=== PATIENT | female | born 1990 | race Caucasian/White ===

== ENCOUNTER 2023-07-28 19:13 | Emergency (ER) | payer BC, SELFPAY ==
--- NOTE | 2023-07-28 20:33 | PC.NURSE ---
Rounded on pt, no needs at this time.
[2023-07-28 20:56] VITALS: BP 132/75; PULSE 80; RESP 15; TEMP 36.8; O2SAT 98; BMI 32.6
--- NOTE | 2023-07-28 21:08 | PC.NURSE ---
Rounded on patient and mother; patient resting soundly at this time. Recheck Temp was 99 rectally. Call light within reach
[2023-07-28 21:15] LABS: Microscopic, Urine URINE MICROSCOPIC (MICROSCOPIC)
[2023-07-28 21:18] LABS: Appearance,Urine CLEAR (Clear); Bilirubin,Urine Negative (Negative); Blood, Urine 2+ (Negative); Color,Urine YELLOW (Yellow); Glucose,Urine (UA) Negative (Negative); Ketones,Urine Negative (Negative); Leukocyte Esterase,Urine Negative (Negative); Nitrate,Urine Negative (Negative); Protein,Urine Negative (Negative); Urobilinogen,Urine 0.2 EU/dl (0.2)
[2023-07-28 21:19] LABS: Urine Pregnancy, HCG Qual. Negative (Negative)
[2023-07-28 21:41] LABS: Basophils % 0.4 % (0.1-2.0); Eosinophils # 0.2 K/mm3 (0.0-0.4); Eosinophils % 2.4 % (0.1-12.0); Hematocrit 40.6 % (37.0-47.0); Lymphocytes # 1.7 K/mm3 (0.7-4.5); Lymphocytes % 17.3 % (10-50); Mean Corpuscular HGB Conc 32.1 g/dL (31.8-35.4); Mean Corpuscular Hemoglobin 28.8 pg (27.0-31.2); Mean Corpuscular Volume 89.7 fl (81-99); Monocytes # 0.4 K/mm3 (0.1-1.0); Neutrophils # 7.4 K/mm3 (1.8-7.8); Platelet Count 195 K/mm3 (142-424); Red Blood Count 4.53 M/mm3 (4.20-5.40); Red Cell Distribution Width 12.4 % (11.5-17.5); White Blood Count 9.7 K/mm3 (4.8-10.8)
[2023-07-28 21:41] LABS: RBC,Urine Occasional #/hpf (0-3); Squamous Epithelial Cell,Urine Occasional #/hpf (0-5)
[2023-07-28 21:48] LABS: Chloride 108 mmol/L (98-107); Potassium 3.5 mmoL/L (3.5-5.1); Sodium 140 mmol/L (136-145)
[2023-07-28 21:50] LABS: Alanine Aminotransferase 23 U/L (12-78); Aspartate Amino Transferase 32 U/L (14-36); Bilirubin,Total 0.6 mg/dl (0.2-1.3); Blood Urea Nitrogen 11 mg/dl (7-17); Creatinine Clearance Estimated 179 mL/min (50-200); Estimated Glomerular Filt Rate 98 ml/min (>60); GFR (African American) 118 ML/MIN (>60)
[2023-07-28 21:51] LABS: Albumin Level 4.1 g/dl (3.5-5.0); Albumin/Globulin Ratio 1.3 (1.1-1.8); Alkaline Phosphatase 37 U/L (38-126); Anion Gap 11.5 mEq/L (5-15); Calcium 8.6 mg/dl (8.4-10.2); Carbon Dioxide 24 mmol/L (22.0-30.0); Globulin 3.2 g/dL (1.3-3.2); Glucose 89 mg/dl (74-100); Lipase 94 U/L (23-300); Total Protein,Serum 7.3 g/dl (6.3-8.2)
--- NOTE | 2023-07-28 22:12 | CT_ITS ---
PROCEDURE INFORMATION: Exam: CT Abdomen And Pelvis With Contrast Exam date and time: 07/28/2023 10:22 PM Age: 33 years old Clinical indication: Vomiting; Abdominal pain; Additional info: Ruq pain, vomit TECHNIQUE: Imaging protocol: Computed tomography of the abdomen and pelvis with contrast. Radiation optimization: All CT scans at this facility use at least one of these dose optimization techniques: automated exposure control; mA and/or kV adjustment per patient size (includes targeted exams where dose is matched to clinical indication); or iterative reconstruction. Contrast material: ISOVUE; Contrast volume: 75 ml; Contrast route: IV; REPORTING DATA: Count of CT and Cardiac NM exams in prior 12 months: This patient has received 0 known CTs and 0 known cardiac nuclear medicine studies in the 12 months prior to the current study. COMPARISON: No relevant prior studies available. FINDINGS: Lungs: 16 mm subpleural bulla/bleb at the right lung base. Liver: Normal. No mass. Gallbladder and bile ducts: Normal. No calcified stones. No ductal dilation. Pancreas: Normal. No ductal dilation. Spleen: Normal. No splenomegaly. Adrenal glands: Normal. No mass. Kidneys and ureters: Normal. No hydronephrosis. Stomach and bowel: Unremarkable. No obstruction. No mucosal thickening. Appendix: No evidence of appendicitis. Intraperitoneal space: Unremarkable. No free air. No significant fluid collection. Vasculature: Unremarkable. No abdominal aortic aneurysm. Lymph nodes: Unremarkable. No enlarged lymph nodes. Urinary bladder: Unremarkable as visualized. Reproductive: Unremarkable as visualized. Bones/joints: There is congenital narrowing of the bony lumbar canal. There are mild posterior disc osteophyte complexes from L2-L3 through L4-L5 causing at least mild central canal stenosis at these levels. Soft tissues: Unremarkable. IMPRESSION: 1. There is no acute process evident within the abdomen or pelvis. 2. 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
--- NOTE | 2023-07-28 22:13 | HMH.EDGENADL ---
Discharge Plan Disposition Patient Disposition: Home, Self-Care Prescriptions Prescriptions: New ondansetron 4 mg tablet,disintegrating 4 mg PO Q8H PRN (Reason: nausea and vomiting) 4 Days Qty: 12 0RF Referrals Follow up/Referrals: Radha Fabian [Primary Care Provider] - See instructions Kamran Baig DO [Staff Physician] - See instructions Activity Restrictions/Add. Instructions Additional Instructions/Restrictions: At this time is felt you are safe to be discharged home. If new or worsening symptoms please do not hesitate to return the emergency department. Please take your medication as prescribed. It is possible that you have a virus that will spontaneously resolve over time. If symptoms persist it is possible that you may have some gallbladder dysfunction. Please call Dr. Baig to establish care as soon as you are able. Clinical Impressions Clinical Impression: Abdominal pain, Vomiting Instructions Patient Instructions: DI for Acute Abdominal Pain Discharge ED Provider: Jorge Modi General Adult HPI General Chief complaint: Abdominal Pain Stated complaint: abd pain V/D Time Seen by Provider: 07/28/23 21:30 Mode of Arrival: Family Vehicle Source of Information: Patient Limitations: No Limitations Description of Symptoms (Recalled from ER Triage Doc. by RN): RUQ abd pain, n/v/d since Thursday. Decr PO intake. Afebrile. History of Present Illness HPI narrative: Patient is a 33-year-old female no pertinent past medical history presents emergency department for evaluation of right upper quadrant abdominal pain. Onset was acute, occurring since Thursday, nonbloody vomiting and diarrhea, moderate to severe right upper quadrant abdominal pain. No other acute complaints at this time. Currently on her period. Related Data Previous Rx's Medication Instructions Recorded ondansetron 4 mg disintegrating 4 mg PO Q8H PRN nausea and 07/29/23 tablet vomiting 4 days #12 tabs Allergies Allergy/AdvReac Type Severity Reaction Status Date / Time Penicillins Allergy Intermediate Verified 07/28/23 20:01 codeine Allergy Mild Verified 07/28/23 20:01 amoxicillin Allergy Unknown Verified 07/28/23 20:01 allergy reaction [facility] Disclaimer: The information contained in this section may have been updated after the patient was seen, as this information can be updated by other users. Social History Smoking Status: Unknown if ever smoked alcohol intake: never current occupational status: other Travel in the last 8 weeks: None ROS Obtained: Yes Systems reviewed as appropriate & no additional complaints except as documented Physical Exam General General appearance: alert and in no apparent distress Head Head exam: atraumatic and normocephalic Eye Eye exam: Present PERRL and EOMI ENT ENT exam: Present mucous membranes moist Neck Neck exam: Present normal inspection Chest Chest inspection: Present normal inspection and symmetric chest wall rise Respiratory Respiratory exam: Present normal lung sounds bilaterally; Absent respiratory distress Cardiovascular Cardiovascular exam: Present regular rate and normal rhythm Abdominal Exam Abdominal exam: Present soft and tenderness (Right upper quadrant); Absent guarding or rebound Extremities Exam Extremities exam: Present normal inspection Neurological Exam Neurological exam: Present alert Psychiatric Psychiatric exam: Present normal affect Skin Skin exam: Present warm and dry Medical Decision Making Ladarius Inquiry Pt receiving controlled substance: No Vital Signs: 07/28/23 20:56 07/28/23 21:08 07/28/23 23:04 Temperature 98.2 F 99 F Temperature Source Oral Rectal Pulse Rate 76 Pulse Rate [Right Brachial] 80 Respiratory Rate 15 16 Blood Pressure 122/82 Blood Pressure [Right Arm] 132/75 Blood Pressure Mean 92 Blood Pressure Mean [Right Arm] 94 Blood Pressure Source [Right Arm] Automatic Cuff Blood Pres
--- NOTE | 2023-07-28 22:53 | PC.NURSE ---
Rounded on patient and family; warm blanket and pillow provided to patient
[2023-07-28 22:57] LABS: Coronavirus 19, PCR Not Detected (NotDetected); Influenza A, PCR Not Detected (NotDetected); Influenza B, PCR Not Detected (NotDetected)
[2023-07-28 23:04] VITALS: BP 122/82; PULSE 76; RESP 16; O2SAT 98
--- NOTE | 2023-07-28 23:05 | PC.NURSE ---
Rounded on patient; offered patient's sister crackers and a drink nothing else needed at this time. Call light within reach
[2023-07-28 23:30] VITALS: BP 119/71; PULSE 70; RESP 18; O2SAT 98
[2023-07-29] VITALS: BP 129/90; PULSE 74; RESP 16; O2SAT 98
[2023-07-29 00:24] VITALS: BP 126/84; PULSE 70; RESP 18; TEMP 36.8; O2SAT 99
== END 2023-07-29 00:25 | disposition home or self-care (01) ==
PROVIDERS: Emergency Provider Emergency Medicine; PCP Family Medicine
DX: R10.11 Right upper quadrant pain (principal); R11.2 Nausea with vomiting, unspecified
CPT/HCPCS: 36415; 74177; 80053; 81001; 81025; 83690; 85025; 87636; 96361; 96374; 96375; 99285; J0131; J2405; Q9967

== ENCOUNTER → 2023-08-12 08:21 | Outpatient (CLI) | payer OTHER, BC, SELFPAY ==
--- NOTE | 2023-08-12 08:25 | US_ITS ---
FINAL REPORT CLINICAL HISTORY: Bilary Abd Pain COMPARISON: None FINDINGS: Sonographic images of the right upper quadrant were obtained. The pancreas is obscured by overlying bowel gas. There is generalized increased echogenicity in the liver compatible with fatty infiltration of the liver. There is a small 7 x 7 mm hypoechoic focus in the liver, likely a hepatic cyst. The gallbladder appears normal without evidence of gallstones.There is no evidence of biliary ductal dilatation.The common duct measures 3 mm. Limited images of the right kidney are unremarkable. IMPRESSION: Fatty infiltration of the liver. No evidence of biliary ductal dilatation or gallstones. Reviewed, Interpreted and Dictated by Andrea Del Rosario III, MD Transcribed by Florencia Torrez Authenticated and [facility]
[2023-08-12 09:48] LABS: Chol/HDL Ratio 3.3 (1-3.5); Cholesterol 169 mg/dl (140-200); HDL Cholesterol 52 mg/dl (40-60); Triglycerides 85 mg/dl (30-150); VLDL Cholesterol 17 mg/dL (0-40)
[2023-08-12 09:59] LABS: Direct LDL Cholesterol 99.26 mg/dL (100-129)
== END ==
PROVIDERS: PCP Internal Medicine; Visit Provider Internal Medicine
DX: K83.9 Disease of biliary tract, unspecified (principal); R10.9 Unspecified abdominal pain; E55.9 Vitamin D deficiency, unspecified; Z13.21 Encounter for screening for nutritional disorder; Z13.220 Encounter for screening for lipoid disorders; Z68.33 Body mass index [BMI] 33.0-33.9, adult
CPT/HCPCS: 36415; 76705; 80061; 82306

== ENCOUNTER → 2023-09-07 10:11 | Outpatient (CLI) | payer OTHER, SELFPAY ==
--- NOTE | 2023-09-07 10:12 | NM_ITS ---
FINAL REPORT CLINICAL HISTORY: Biliary colic in the absence of cholelithiasis COMPARISON: None FINDINGS: Sequential anterior projection images of the abdomen were obtained after the intravenous injection of 8.68 mCi technetium 99m Choletec. There is normal uptake of radiotracer by the liver. The bile ducts are visualized by 10 minutes. Gallbladder activity is seen by 10 minutes. Bowel activity is noted by 35 minutes. After 1 hour, 2 ?g of CCK was injected intravenously for calculation of gallbladder ejection fraction. The gallbladder ejection fraction is 39%, which is within normal limits. IMPRESSION: No evidence of cystic duct or bile duct obstruction. Normal gallbladder ejection fraction of 39%. Reviewed, Interpreted and Dictated by Kath Andersen MD Transcribed by Florencia Torrez Authenticated and [facility]
== END ==
PROVIDERS: PCP Internal Medicine; Visit Provider Internal Medicine
DX: K80.50 Calculus of bile duct without cholangitis or cholecystitis without obstruction (principal); K83.9 Disease of biliary tract, unspecified; R10.9 Unspecified abdominal pain
CPT/HCPCS: 78227; A9537; J2805

== ENCOUNTER 2025-07-12 13:49 | Outpatient (CLI) | payer BC, SELFPAY ==
--- OUTSIDE RECORDS SUMMARY | 2025-07-12 13:51 | XMS_ITS | Clinical Summary ---
Author Organization Healthcare Address [address] [place] [address] Care Team Providers Care Rn Unit Manager Name Role Phone Radha Fabian MD Primary Care Provider [phone] Allergies Active Allergy Reactions Criticality Noted Date Comments Ceftriaxone Rash,Unknown - Patie nt states they do not know rxn details Low 03/17/2018 Penicillins Unknown - Patient st ates they do not know rxn details Low 03/17/2018 Medications fluticasone (Flonase) 50 MCG/ACT nasal sprayIndications:S easonal allergic rhinitis, unspecified trigger Administer 2 sprays into each nostril 1 (one) time each day. 16 g 3 3 Active sertraline (Zoloft) 100 MG tabletIndications: Generalized anxiety disorder Take 1 tablet (100 mg) by mouth 1 (one) time each day. 90 tablet 3 4 Active levothyroxine (Synthroid) 200 MCG tabletIndications: Post-surgical hypothyroidism Take 1 tablet (200 mcg) by mouth 1 (one) time each day. 30 tablet 5 4 Active Tirzepatide-Weight Management 2.5 MG/0.5ML solution auto-injectorIndic ations:Morbid obesity with body mass index (BMI) of 40.0 or higher (CMS/HCC) Inject 2.5 mg under the skin 1 (one) time per week. 2 mL 2 4 Active nystatin (Mycostatin) 745333 UNIT/GM powderIndications: Intertriginous candidiasis Apply topically 2 (two) times a day. Until symptoms resolved or 7-14 days. 30 g 3 5 Active Active Problems Problem Noted Date Diagnosed Date Thyroid cancer 04/20/2022 Post-surgical hypothyroidism 04/20/2022 Morbid obesity with body mass index (BMI) of 40. 0 or higher 12/13/2021 Generalized anxiety disorder 05/17/2021 Depression 02/25/2021 GERD (gastroesophageal reflux disease) 9 Allergic rhinitis 03/17/2018 Hypothyroidism 03/17/2018 Papillary thyroid carcinoma 03/17/2018 PCOS (polycystic ovarian syndrome) 03/17/2018 Resolved Problems Problem Noted Date Diagnosed Date Resolved Date Obesity 03/17/2018 12/13/2021 Immunizations Immunization Administration Dates Next Due Influenza, injectable, quadr ivalent, preservative free 08/22/2021,08/09/2020,09/06/2018 PPD Skin Test (TB Skin Test) 02/21/2019 Ideabove COVID-19 Vac cine (Purple Cap) 12+ 11/26/2020,11/05/2020 Tdap 08/18/2019 Family History Medical History Relation Name Comments Diabetes type II Father Diabetes type II Mother Hypertension Mother Relation Name Status Comments Father Mother Social History Tobacco Use Types Packs/Day Years Used Date Smoking Tobacco: Never Smokeless Tobacco: Never Tobacco Cessation:Counseling Given: Not Answered Alcohol Use Standard Drinks/Week Comments Yes 0 (1 standard drink = 0.6 oz pure alcohol) Alcoholic Drinks/day: Occasional alcohol use Humiliation, Afraid, Rape, and Kick questionnair e Answer Date Recorded Within the last year, have y ou been afraid of your partner or ex-partner? No 01/23/2025 Within the last year, have y ou been humiliated or emotionally abused in other ways by your partner or ex-partner? No Within the last year, have y ou been kicked, hit, slapped, or otherwise physically hurt by your partner or ex-partner? No 01/23/2025 Within the last year, have y ou been raped or forced to have any kind of sexual activity by your partner or ex-partner? No 01/23/2025 PHQ-2 Answer Date Recorded Patient Health Questionnaire-2 Score 0 12/14/2024 Hunger Vital Sign Answer Date Recorded Within the past 12 months, y ou worried that your food would run out before you got the money to buy more. Never true 01/24/20 25 Within the past 12 months, t he food you bought just didn't last and you didn't have money to get more. Never true 01/23/2025 PRAPARE - Transportation Answer Date Re corded In the past 12 months, has l ack of transportation kept you from medical appointments or from getting medications? No 01/01 In the past 12 months, has l ack of transportation kept you from meetings, work, or from getting things needed for daily living? No 01/23/2025 PHQ-9 Answer Date Recorded Patient Health Questionnaire-9 Score 8 09/26/2024 Housing Stability Vital Sign Answer Cesar e Recorded In the last 12 months, was t here a time when you were not able to pay the mortgage or rent on time? No 01/23/2025 In the past 12 months, how m any times have you moved where you were living? 0 01/23/2025 At any time in the past 12 m [facility], were you homeless or living in a jail (including now)? No 01/23/2025 Utilities Answer Date Recorded In the past 12 months has th e electric, gas, oil, or water company threatened to shut off services in your home? No 01/23/2025 PHQ-2A Answer Date Recorded Patient Health Questionnaire-2 Score 0 10/02/2023 Comments No Sex and Gender Information Value Date Recorded Sex Assigned at Not on file Legal Sex Female 6:47 PM EDT Gender Identity Not on file Sexual Orientation Not on file Last Filed Vital Signs Vital Sign Reading Time Taken Comments Blood Pressure 140/89 12/14/2024 8:16 AM EST Pulse 83 12/14/2024 8:16 AM EST Temperature 36.7 C (98.1 F) 12/14/2024 8:16 AM EST Respiratory Rate 18 09/26/2024 4:10 PM EST Oxygen Saturation 99% 12/14/2024 8:16 AM EST Inhaled Oxygen Concentration - - Weight 129 kg (283 lb 8.2 oz) 12/14/2024 8:16 AM EST Height 170.2 cm (5' 7 ) 03/16/2024 8:53 AM EDT Body Mass Index 44.4 03/16/2024 8:53 AM EDT Plan of Treatment Upcoming Encounters Date Type Department Care Team (Late st Contact Info) Description 12/15/2025 8:40 AM EST Office Visit Obstetrics & Gynecology [address] [place] [phone] Crista Lawrence MD [address] [place] [phone] Health Maintenance Due Date Last Done Comments [facility]-HIV Screening 1992 [facility]-Infant/Child/Adol SDOH Screenings 1992 [facility]-Varicella Vaccines (1 of 2 - 13+ 2-dose series) 2005 [facility]-Hepatitis B Vaccines (1 of 3 - 19+ 3-dose series) 2011 [facility]-Pneumococcal Vaccine: Pediatrics (0 to 5 Years) and At-Risk Patients (6 to 49 Years) (1 of 2 - PCV) 2011 [facility]-Zoster Vaccines (1 of 2) 2011 HPV Vaccines (1 - Risk 3-dose SCDM series) 2019 [id number] Vaccine ( - 2024- season) 2025 08/05/2021, 11/26/2020, 11/05/2020 [facility]-Influenza Vaccine (#1) 07/03/202508/22, 08/09/2020, 09/06/2018 [facility]- SDOH Screenings 07/26/2025 [facility]-Adult SDOH Screenings 07/26/2025 01/23/2025 [facility]-Depression Screening 12/14/2025 12/14/2024, 09/03 [facility]-Pap Smear 12/14/2027 12/14/2024, 12/11/2021 [facility]-DTaP,Tdap,and Td Vaccines (2 - Td or Tdap) 08/18/2029 08/18/2019 [facility]-Cervical Cancer Screening 12/14/2029 [facility]-HPV/Cotest 12/14/2029 12/14/2024, 12/11/2021 [facility]-Hepatitis C Screening Completed 11/01/2019 [facility]-Obesity Intervention Completed 025, 09/26/2024, 09/26/2024, Additional history exists [facility]-HIB Vaccines Aged Out No longer e ligible based on patient's age to complete this topic [facility]-Hepatitis A Vaccines Aged Out No longer eligible based on patient's age to complete this topic [facility]-IPV Vaccines Aged Out No longer e ligible based on patient's age to complete this topic [facility]-Rotavirus Vaccines Aged Out No lo nger eligible based on patient's age to complete this topic Procedures Procedure Name Priority Date/Time Associated Diagnosis Comments REFERRED THINPREP PAP AND HPV (SO) Routine 12/14/2024 8:42 AM EST Cervical cancer screening HEPATITIS C ANTIBODY - ED W/REFLEX TO HCV QUANT PCR Routine 11/01/2019 4:45 PM EST from Last 3 Months or Most Recently Relevant to Health Maintenance Results * Referred ThinPrep Pap and HPV (SO) (12/14/2024 8:42 AM EST) Pap, Source Cx/Vagina 12/22/2024 6:54 PM EST [facility] EER Referred ThinPrep Pap and HPV See Note 12/22/2024 6:54 PM EST [facility] PAP, THINPREP Normal 12/22/2024 6:54 PM EST [facility] High Risk HPV Normal 12/22/2024 6:54 PM EST [facility] Swab Vaginal and cervical cytologic material / Unknown Non-blood Collection / Unknown 12/14/2024 8:42 AM EST 12/14/2024 1:29 PM EST Narrative [facility] - 12/22/2024 6:54 PM EST Authorized individuals can access the [facility] [employer] Enhanced Report with an [facility] Connect account using the following link. Your local lab can assist you in obtaining the patient report if you don't have a Connect account. [email or web address] Performed By: [facility] [address] [place] [id number] Assembly Hand: Aneudy Guevara MD, PhD CLIA Number: [id number] SPECIMEN PART A. Cervical, Endocervical, Vaginal, ThinPrep Pap ([facility]) CYTOLOGY HX Date of Last Menstrual Period: N FINAL DIAGNOSIS INTERPRETATION: Negative for Intraepithelial Lesion or Malignancy. SPECIMEN ADEQUACY:Satisfactory for evaluation. Endocervical/transformation zone component present. Electronically Signed Out : Supriya Horne Performed by: [facility] [address] [place] [address] [place] [address] Jemima Leal MD, HR-HPV: Negative Test performed by the FDA-approved [employer] (Gen-Probe) APTIMA HPV test, which detects HPV genotypes: 16, 18, 31, 33, 35, 39, 45, 51, 52, 56, 58, 59, 66, and 68. This assay has been cleared for the specimen types listed below. Other specimen types have not been validated for this assay. -Clinician-collected ThinPrep Pap specimens. Performed by: [facility] [address] [place] [address] [place] [address] Jemima Leal MD, Crista Lawrence MD LAB REF LAB BLOOD AND FLUID OR D Final Result [facility] [address] [id number] * Bradley Hepatitis C Antibody (11/01/2019 4:45 PM EST) Chelita Hepatitis C Ab NEGATIVE Reference Range: Negative [facility] 11/01/2019 4:45 PM EST 11/01/2019 5:06 PM EST Tamiko Chang MD LAB BLOOD ORDERABLES Final Re sult [facility] from Last 3 Months or Most Recently Relevant to Health Maintenance Insurance [facility] Care Teams Rn Unit Manager Relationship Specialty Start Date End Date Radha Fabian MD [address] [place] [address] PCP - General Family Medicine 04/23/22
--- OUTSIDE RECORDS SUMMARY | 2025-07-12 13:51 | XMS_ITS | Clinical Summary ---
[facility] Address [address] [place] [address] Care Team Providers Care Clinical Engineering Director Name Role Phone Radha Fabian MD Primary Care Provider Allergies Active Allergy Reactions Criticality Noted Date Comments Ceftriaxone Rash Low 03/25/2022 Penciclovir Rash Low 03/25/2022 Penicillins Hives,Rash Low 03/16/2019 Medications doxycycline (VIBRAMYCIN) 100 MG capsule Take 1 capsule by mouth Every 12 (Twelve) Hours. 11/16/19 25 Active sertraline (ZOLOFT) 100 MG tablet Take 1 tablet by mouth Daily. Active Synthroid 175 MCG tabletIndications: Post-surgical hypothyroidism Take 1 tablet by mouth Every Morning. 90 tablet 3 01/05/20 25 Active Zepbound 7.5 MG/0.5ML solution auto-injectorIndic ations:Class 3 severe obesity due to excess calories with serious comorbidity and body mass index (BMI) of 45.0 to 49.9 in adult Inject 0.5 mL under the skin into the appropriate area as directed 1 (One) Time Per Week. 2 mL 5 03/14/20 25 Active Active Problems Problem Noted Date Diagnosed Date Depression with anxiety 11/20/2023 Thyroid cancer 04/20/2022 Post-surgical hypothyroidism 04/20/2022 PCOS (polycystic ovarian syndrome) 04/20/2022 Allergic rhinitis 03/17/2018 Encounters Date Type Department Care Team Description 05/10/[address] [facility] [id number] [address] Salina Luther MD from Last 3 Months Immunizations Immunization Administration Dates Next Due PPD Test 02/21/2019 Family History Medical History Relation Name Comments Diabetes Father Heart disease Father Skin cancer Father Diabetes Mother Hypertension Mother Diabetes Sister Relation Name Status Comments Father Mother Sister Social History Tobacco Use Types Packs/Day Years Used Date Smoking Tobacco: Never Smokeless Tobacco: Never Alcohol Use Standard Drinks/Week Comments Yes 0 (1 standard drink = 0.6 oz pur e alcohol) socially Comments Unknown Sex and Gender Information Value Date Recorded Sex Assigned at Not on file Legal Sex Female 11:53 AM EST Gender Identity Not on file Sexual Orientation Not on file Last Filed Vital Signs Vital Sign Reading Time Taken Comments Blood Pressure 126/70 11/21/2024 7:35 AM EST Pulse 97 11/21/2024 7:35 AM EST Temperature 36.7 C (98.1 F) 03/16/2019 4:11 PM EDT Respiratory Rate 12 03/16/2019 4:11 PM EDT Oxygen Saturation 97% 11/21/2024 7:35 AM EST Inhaled Oxygen Concentration - - Weight 131 kg (289 lb) 11/21/2024 7:35 AM EST Height 167.6 cm (5' 6 ) 11/21/2024 7:35 AM EST Body Mass Index 46.65 11/21/2024 7:35 AM EST Plan of Treatment Health Maintenance Due Date Last Done Comments Annual Gynecologic Pelvic and Breast Exam 1992 PAP SMEAR 2013 ANNUAL PHYSICAL 03/25/2022 HEPATITIS C SCREENING 03/25/2022 COVID-19 Vaccine ( season) 2025 08/05/2021, 11/26/2020, 11/05/2020 INFLUENZA VACCINE 08/02/2025 08/22/2021, , 09/06/2018, Additional history exists TDAP/TD VACCINES (4 - Td or Tdap) 08/18/2029 08/18/2019, 11/05/2013, 01/25/2004 Pneumococcal Vaccine 0-49 Aged Out 09/02/2001 No longer eligible based on patient's age to complete this topic Insurance [employer] [facility] PPO Care Teams Clinical Engineering Director Relationship Specialty Start Date End Date Radha Fabian MD [address] [place] [address] PCP - General Family Medicine 11/18/23
--- NOTE | 2025-07-12 14:15 | US_ITS ---
FINAL REPORT TECHNIQUE: Sonographic images of the neck were obtained bilaterally at the area of interest. CLINICAL HISTORY: Pain/swellling of neck COMPARISON: None FINDINGS: The left submandibular salivary gland is homogeneous. There is a small hypoechoic oval lesion along the inferior left parotid gland which may represent a small intraparotid lymph node. Otherwise, the left parotid is homogeneous. Adjacent to the left parotid gland are several benign-appearing small lymph nodes. No fluid collection is noted on the left. The right submandibular salivary gland is homogeneous. The right parotid gland is homogeneous. There are several benign-appearing lymph nodes adjacent to the right parotid gland, the largest measuring 16 mm, favor reactive. IMPRESSION: Small hypoechoic left parotid nodule could represent a small intraparotid lymph node or parotid cyst. Mildly prominent right cervical lymph nodes favor reactive. Reviewed, Interpreted and Dictated by Kath Andersen MD Transcribed by Marissa Rivas Authenticated and [facility]
== END 2025-07-12 23:59 | disposition home or self-care (01) ==
LOC: RAD 13:49
PROVIDERS: PCP Internal Medicine; Visit Provider Internal Medicine
DX: M54.2 Cervicalgia (principal); R59.0 Localized enlarged lymph nodes; M79.9 Soft tissue disorder, unspecified; R93.89 Abnormal findings on diagnostic imaging of other specified body structures
CPT/HCPCS: 76536